=== PATIENT | female | born 1950 | race Caucasian/White ===

== ENCOUNTER → 2018-01-31 | Outpatient (CLI) | payer MEDICARE ==
--- NOTE | 2018-01-31 14:44 | WOMENS IMAGING REPORT ---
EXAM DESCRIPTION: 3D SCREENING MAMMO BILAT COMPLETED DATE/TIME: 01/31/2018 9:41 am REASON FOR STUDY: ROUTINE SCREENING;Z12.31 Z12.31 ENCNTR SCREEN MAMMOGRAM FOR MALIGNANT NEOPLASM OF JOSE COMPARISON: None. TECHNIQUE: Standard craniocaudal and mediolateral oblique views of each breast recorded using digita l acquisition and breast tomosynthesis. LIMITATIONS: None. FINDINGS: No masses, calcifications or architectural distortion. No areas of suspicion. Read with the assistance of CAD. .[facility] - R2 Cenova Version 1.3 .[facility] - R2 Cenova Version 1.[address] - R2 Cenova Version 2.4 .[facility] - R2 Cenova Version 2.4 .[facility] - R2 Grain Combiner Version 9.2 IMPRESSION: NORMAL MAMMOGRAM. BIRADS 1. BREAST DENSITY: b. There are scattered areas of fibroglandular density. BIRAD: 1 NEGATIVE RECOMMENDATION: ROUTINE SCREENING COMMENT: The patient has been notified of the results by letter per [place] requirements. Additional no tification policies are in place for contacting patient with suspicious or incomplete findings. Quality ID #[id number]: The [employer] recommends an annual screening mammogram for women aged 40 years or over. This facility utilizes a reminder system to ensure that all patients receive reminder letters, and/or direct phone calls for appointments. This includes reminders for routine scr eening mammograms, diagnostic mammograms, or other Breast Imaging Interventions when appropriate. Th is patient will be placed in the appropriate reminder system. The [employer] ([employer]) has developed recommendations for screening MRI of the breast s in certain patient populations, to be used in conjunction with mammography. Breast MRI surveillanc e may be appropriate for women with more than 20% lifetime risk of developing breast cancer as deter mined by genetic testing, significant family history of the disease, or history of mantle radiation f or Hodgkins Disease. ACR Practice Guidelines 2008. DBT Technology DBT is a type of tomographic mammography. With conventional mammography, overlapping breast tissue ma y make lesions difficult to detect, even with good compression. DBT uses an x-ray tube that rotates a round the breast, taking images at different angles. These images are then combined to create thin sl ices of the breast that the radiologist can view as a 3D reconstruction. The [employer] unit can perform full-field digital mammograms (2D imaging); or DBT (3D imaging); or both, in a combination mode that quickly performs both the mammogram and the tomosynthesis scan while the breast is still compressed. PQRS 6045F: Fluoroscopic imaging is not utilized for breast tomosynthesis. TECHNICAL DOCUMENTATION: FINDING NUMBER: (1) ASSESSMENT: (1) JOB ID: [id number] [employer]- All Rights Reserved Reading location - IP/workstation name: [email or web address]
== END ==
LOC: WI 09:10
PROVIDERS: ATTEND Physician Assistant
DX: Z12.31 Encounter for screening mammogram for malignant neoplasm of breast (principal)
CPT/HCPCS: 77063; 77067

== ENCOUNTER 2019-08-14 10:56 | Day surgery (SDC) | payer MEDICARE, OTHER ==
[~2019-08-14 10:56] MED LIST: CHONDR SU A NA/HYALUR INTRAOC KIT (SURGICARE) ONE; DORZOLAMIDE HCL 2%/TIMOLOL MALEAT 0.5% OPH SOLN 10 ML OD PRN; EPINEPHRINE INJ/PF 1 MG/1 ML AMPULE ONE; KETOROLAC TROMETHAMINE 0.45% 4 DROP/0.4 ML DROPERETTE OD PRN; LIDOCAINE 1%/PHENYLEPHRINE 1.5% 1 ML VIAL ONE; TOBRAMYCIN SULFATE/DEXAMETH OPH OINTMENT 3.5 GM ONE
[2019-08-14] MEDS ORDERED: MIDAZOLAM 2 MG/2 ML INJ ONE (11:13)
[2019-08-14] MEDS ORDERED: FENTANYL CITRATE INJ/PF 100 MCG/2 ML AMPUL ONE (11:13)
[2019-08-14] MEDS ORDERED: ONDANSETRON HCL INJ/PF 4 MG/2 ML SDV ONE (11:13)
[2019-08-14] MEDS: CYCLOPENTOLATE 0.2%/PHENYLEPHRINE 1% OPH SOLN 2 ML OD PRN ×3 (11:45→12:05)
[2019-08-14] MEDS: TROPICAMIDE 1% OPH SOLN 15 ML OD PRN ×3 (11:45→12:05)
[2019-08-14] MEDS: BESIFLOXACIN HCL 0.6% OPH SUSP 5 ML BOTTLE OD PRN ×3 (11:45→12:49)
[2019-08-14] MEDS: TETRACAINE HCL 0.5% OPH SOLN 4 ML OD PRN ×3 (11:46→12:26)
== END 2019-08-14 13:27 | disposition home or self-care (01) ==
LOC: SC 10:56
PROVIDERS: ATTEND Ophthalmology
DX: H25.11 Age-related nuclear cataract, right eye (principal); E03.9 Hypothyroidism, unspecified; Z79.899 Other long term (current) drug therapy; Z86.73 Personal history of transient ischemic attack (TIA), and cerebral infarction without residual deficits
CPT/HCPCS: 00142; 66982; V2788; J2250; J3490 ×3; A9270; J0171; J3010; J2405; J2370; 142

== ENCOUNTER 2019-08-28 11:49 | Day surgery (SDC) | payer MEDICARE, OTHER ==
[~2019-08-28 11:49] MED LIST changes: -DORZOLAMIDE HCL 2%/TIMOLOL MALEAT 0.5% OPH SOLN 10 ML OD PRN; +FENTANYL CITRATE INJ/PF 100 MCG/2 ML AMPUL ONE; -KETOROLAC TROMETHAMINE 0.45% 4 DROP/0.4 ML DROPERETTE OD PRN; +KETOROLAC TROMETHAMINE 0.45% 4 DROP/0.4 ML DROPERETTE OS PRN; +LIDOCAINE 1% INJ-PF (10 MG/ML) 30 ML SDV ONE; +MIDAZOLAM 2 MG/2 ML INJ ONE; -TOBRAMYCIN SULFATE/DEXAMETH OPH OINTMENT 3.5 GM ONE
[2019-08-28] MEDS: TROPICAMIDE 1% OPH SOLN 15 ML OS PRN ×3 (11:58→12:18)
[2019-08-28] MEDS: BESIFLOXACIN HCL 0.6% OPH SUSP 5 ML BOTTLE OS PRN ×4 (11:58→12:55)
[2019-08-28] MEDS: CYCLOPENTOLATE 0.2%/PHENYLEPHRINE 1% OPH SOLN 2 ML OS PRN ×3 (11:58→12:18)
[2019-08-28] MEDS: TETRACAINE HCL 0.5% OPH SOLN 4 ML OS PRN ×3 (11:59→12:35)
[2019-08-28] MEDS: TOBRAMYCIN SULFATE/DEXAMETH OPH OINTMENT 3.5 GM ONE ×2 (12:55)
[2019-08-28] MEDS: DORZOLAMIDE HCL 2%/TIMOLOL MALEAT 0.5% OPH SOLN 10 ML OS PRN ×2 (12:55)
== END 2019-08-28 13:40 | disposition home or self-care (01) ==
LOC: SC 11:49
PROVIDERS: ATTEND Ophthalmology
DX: H25.12 Age-related nuclear cataract, left eye (principal); Z98.41 Cataract extraction status, right eye; E03.9 Hypothyroidism, unspecified; I10 Essential (primary) hypertension; Z87.891 Personal history of nicotine dependence; Z86.73 Personal history of transient ischemic attack (TIA), and cerebral infarction without residual deficits
CPT/HCPCS: 66984; 00142; V2788; J2250; J3490 ×2; A9270 ×2; J0171; J3010; J2370; 142